=== PATIENT | female | born 1980 | race Caucasian/White ===

== ENCOUNTER 2017-02-24 05:42 | Inpatient (IN) | payer OTHER ==
--- NOTE | 2017-02-24 06:09 | HP ---
HISTORY OF PRESENT ILLNESS: Ms. Roberson comes into our office with significant low back and mid back pain. She has rather significant T11-T12 disk disease and MRI was ordered a thoracic spine. Those i mages have been reviewed by Dr. Canales. The symptoms are now worsening in the right leg burning i s no left leg, electric sensations that do not follow classical dermatomes. There is some change in sensation on the right greater than the left. There is also some left flank pain in the chest that w raps around the lower sternum on the left, but there is none on the right. PAST MEDICAL HISTORY: Low back pain, sciatica, hypertension, edema. ALLERGIES: ZORVOLEX, SULFA, PENICILLIN. REVIEW OF SYSTEMS: Ten-point review of system is complete is otherwise negative unless stated in the above HPI. IMAGING: For disks of the imaging studies at [facility]. PAST SURGICAL HISTORY: in 2003 and 2005, tubal ligation in 2005, appendectomy in 1999. HOSPITALIZATIONS: Surgeries only. FAMILY HISTORY: Father is alive, diagnosed with hypertension and heart disease. Mother is alive and siblings are alive. SOCIAL HISTORY: Patient is a current smoker, 1 pack per day for 17 years. She is a stay at home mom . She is and has 2 children. MEDICATIONS: Taking 1. Gabapentin 300 mg capsule 1 capsule orally 3 times a day. 2. Lisinopril 20 mg tablet 1 tablet orally once a day. 3. Baclofen 10 mg tablet 1 tablet with food or milk orally 3 times a day. 4. Spironolactone 25 mg tablet 1 tablet orally twice a day. PHYSICAL EXAMINATION: HEENT: Normocephalic, atraumatic. Hearing intact. Moist mucous membranes. Trachea is midline. Ey es: Pupils are equal and reactive to light. Extraocular muscles are intact. Sclerae is white, thanh cteric. PSYCHIATRIC: Normal mood and affect. CARDIOVASCULAR/CARDIOPULMONARY: No cyanosis or clubbing noted. Intact pedal pulses bilaterally. RESPIRATIONS: Patient has bilateral symmetric chest rise, appears to be no shortness of breath. NEUROLOGIC: Gait and station are normal. Motor exam: There is normal strength in the deltoids, bic eps, triceps, and wrist extensors. Flexion bilaterally is weak with poor effort. No significant leg weakness. Sensory exam: There is no dermatomal sensory loss in C5, C6, C7, C8 or T1. She is havin g some pain in T6 and T11 dermatomes. No sensory level. Reflex exam is brisk knee jerks left greate r than the right. Imaging shows MRI left T6-7 and left T11-12 herniated nucleus pulposus with canal narrowing and stretch of the left nerve roots there. Free look at cervical spine on this most recent thoracic spine shows significant neural entrapment at all. Prior lumbar MRI, no nerve compression. ASSESSMENT: 1. 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 2. Morbid obesity due to excess calories. 3. Chronic pain. PLAN: Nonsurgical therapy has not worked well. Dr. Canales spent a significant amount of time chris bety about obesity, tobacco use, and risks for surgery. Informed consent, we discussed the indicatio ns, risks, benefits, alternatives, and expected results from surgery. Risks discussed included, but were not limited to bleeding, infection, CSF leak, nerve damage, weakness, incontinence, spinal cord injury, arachnoiditis, paralysis, ventilator dependence, wheelchair dependence, loss of vision, and c ardiopulmonary complications of anesthesia or . Long-term complications discussed included, but were not limited to spinal instability and future surgery. She understands the risk and is willing to proceed with the surgery. Costotransversectomy - lateral extracavitary for microsurgical disk rem oval, anticipate some calcifications.
[2017-02-24] MEDS ORDERED: Famotidine/PF 20 mg/2ml Vial ONE (06:17)
[2017-02-24] MEDS ORDERED: Sodium Chloride 0.9% 30 ML ONE (06:17)
[2017-02-24] MEDS ORDERED: Thrombin 5000 UNITS/5 ML VIAL ONE ×2 (06:17→09:01)
[2017-02-24] MEDS ORDERED: Bupivacaine/Epinephrine 0.25% 30 ML VIAL ONE (06:17)
[2017-02-24] MEDS ORDERED: Midazolam HCl 2 mg/2 ml Vial ONE (06:30)
[2017-02-24] MEDS ORDERED: Phenylephrine 10 MG/NS 250 ML 250 ML ONE (06:36)
[2017-02-24] MEDS ORDERED: Albumin 5% 500 ML ONE (06:36)
[2017-02-24 06:39] LABS: #Basophils 0.1 thou/uL (0.0-0.2); #Eosinphils 0.3 thou/uL (0.0-0.7); #Lymphocytes 1.4 thou/uL (1.20-3.40); #Monocytes 0.9 thou/uL (0.11-0.59); #Neutrophils 10.7 thou/uL (1.40-6.50); %Basophils 0.5 % (0.0-1.0); %Eosinophils 1.9 % (0.0-10.0); %Lymphocytes 10.6 % (21.0-51.0); %Monocytes 6.9 % (0.0-10.0); Hematocrit 44.1 % (36.0-47.0); Mean Platelet Volume 8.3 fL (7.4-10.4); Red Blood Cell (RBC) Count 4.72 mill/uL (4.20-5.40); White Blood Cell (WBC) Count 13.3 thou/uL (4.8-10.8)
[2017-02-24 06:45] LABS: PTT 27.6 SEC (22.9-36.1); Prothrombin Time 12.2 SEC (12.0-14.7)
[2017-02-24] MEDS ORDERED: Fentanyl 250 MCG/5 ML VIAL ONE (06:47)
[2017-02-24] MEDS ORDERED: Levofloxacin 500 mg/D5W 100 ml Premix Bag ONE (06:47)
[2017-02-24] MEDS ORDERED: Clindamycin/D5W 900 mg/50 ml Premix Bag ONE (06:47)
[2017-02-24] MEDS ORDERED: Midazolam HCl 5 mg/5 ml Vial ONE (06:59)
[2017-02-24] MEDS ORDERED: Promethazine HCl 25 MG/ML VIAL SLOW IVP PRN (08:19)
[2017-02-24] MEDS ORDERED: Ondansetron HCl/PF 4 MG/2 ML Vial IVP PRN ×2 (08:19→13:07)
[2017-02-24] MEDS ORDERED: Promethazine HCl 25 MG/ML VIAL IM PRN (08:19)
[2017-02-24] MEDS ORDERED: Meperidine HCl/PF 25 MG/ML VIAL SLOW IVP PRN (08:19)
[2017-02-24] MEDS ORDERED: Morphine Sulfate 2 MG/ML SYRINGE SLOW IVP PRN (08:19)
[2017-02-24] MEDS ORDERED: HYDROmorphone 2 MG/ML VIAL SLOW IVP PRN (08:19)
[2017-02-24] MEDS ORDERED: Albuterol Sulfate HFA (OR ONLY) ONE (09:01)
[2017-02-24] MEDS ORDERED: Vecuronium 10 MG VIAL ONE (09:01)
[2017-02-24] MEDS ORDERED: Fentanyl 100 MCG/2 ML VIAL ONE ×2 (09:47→15:37)
[2017-02-24] MEDS ORDERED: hydrALAZINE 20 MG/ML VIAL ONE (12:43)
[2017-02-24] MEDS ORDERED: Acetaminophen/Codeine 30-300mg Tablet PO PRN ×2 (13:07→13:10)
[2017-02-24] MEDS ORDERED: Sodium Chloride For Inhalation 0.9% 3 ML NEB ONE (13:33)
[2017-02-24] MEDS ORDERED: Morphine 2 mg/2ml in 0.9% NaCl PF SYRINGE IVP PRN (14:00)
--- NOTE | 2017-02-24 14:28 | OP ---
DATE OF OPERATION: 02/24/2017 SURGEON: Zaida Canales M.D. IRON SETTER: Santos Lord PA-C. PREOPERATIVE INDICATION: Treat pain and prevent neurological deterioration. PREOPERATIVE DIAGNOSES: Thoracic intervertebral disk herniations at T6-T7 and T11-T12 with T6 and T1 2 radiculopathies and spinal cord compression. POSTOPERATIVE DIAGNOSES: Thoracic intervertebral disk herniations at T6-T7 and T11-T12 with T6 and T 12 radiculopathies and spinal cord compression. OPERATIVE PROCEDURE: Left-sided costotransverse approach with microdiskectomy at T6-T7 and T11-12, o perating microscope. PREOPERATIVE MEDICATION: Ancef 2 grams IV. DRAIN NUMBER: Zero. DRAIN TYPE: None. OPERATIVE DICTATION: The patient was brought to the operating room. General endotracheal anesthesia was induced. The patient was carefully positioned prone on the Bakari frame. Her body habitus mad e positioning and x-rays difficult. We took multiple fluoro radiographs to confirm and reconfirm the T11-T12 and T6-T7 interspaces in the thoracic spine. The thoracic skin was sterilely prepped and dr aped. We opened with a 10-blade knife and controlled bleeding with bipolar and monopolar cautery. W e dissected through copious amounts of subcutaneous fat to the thoracodorsal fascia. We first opened the fascia at T11-T12. We incised this on the left side of the midline and carried our dissection t o the transverse processes. A lateral fluoro radiograph was used to confirm the level upon which we were operating. We visualized the sacrum. We carefully moved our fluoro up until we confirmed and r econfirmed our localization at T11-T12. The malrotation of the retractor was significant. We contin ued our dissection over the transverse processes of T11 and T12 and placed a retractor just lateral t o the transverse process on the left where the blade of the retractor was in the fascia on the right. Using a high-speed drill, we drilled away the transverse process of T12 in its entirety as well as portion of the rib head. We then thinned the lateral portion of the lamina of T11 and using a Kerris on rongeur, we fashioned partial hemilaminectomy there. We removed yellow ligament visualized at dur a. The superior portion of the T11-T12 facet joint was removed until it was flushed with the pedicle . We drilled away some portion of the pedicle to ensure we were below the intervertebral disk. The operative microscope was brought into the field and under microscopic magnification using microsurgic al techniques, we carefully identified the T11 nerve root. We decompressed this by removing the infe rior portion of the transverse process at T11, ventral to the nerve root and in the foramen. We coul d access the disk space. There was disk protrusion at the lateral edge of the dura that was tenting posteriorly. With our microscope tilted through our costotransverse removal, we could see the interf radha between disk and dura. We gently reduced disk away from the dura. We incised the disk space lat erally to the protrusion and removed disk fragments from under the protrusion, we then used curettes to reduce the disk back into the interspace and sweep it away from the dura laterally. Multiple disk fragments were removed. At completion of our microdiskectomy, there was no further tenting of the d ura. The T11 nerve root was widely decompressed. We irrigated with bacitracin irrigation and contro lled bleeding with gentle bipolar cautery and waxed the bone edges. This was a difficult and the lar gest portion of the procedure due to the patient's body habitus. We then moved our attention to the T6-T7 interspace. We incised the fascia to the left of midline. We placed self-retaining retractors as we swept the paraspinal muscles off the spinous process and lamina of T6 and T7, also the transve rse processes. A lateral fluoro radiograph confirmed the level upon which we were operating. We too k advantage of the T11-T12 interspace by putting a marker there then counted up from that to T6-T7. Under the operating microscope, we thinned the lateral portion of the T6 lamina, we removed the T7 tr ansverse process, we drilled away rib head, and we drilled away a portion of the T7 pedicle. We wu blanka yellow ligament and identified the dura. The dura was again tented posteriorly from a disk protr usion in the lateral portion of the spinal canal. We identified the T6 nerve root and made sure this was well decompressed by removing portions of the transverse process of T6 lamina. We then turned o ur attention to decompressing the dura. Once again, we took a angular approach through our defect cr eated by bone drilling to visualize the interface between disk and dura. We incised the disk lateral to the protrusion and then we used curettes to reduce the disk and under the dura and into the openi ng including the disk space and then swept laterally. Multiple fragments of disk were removed. At t he completion of the diskectomy, the dura was no longer stretched. At T6 nerve root was well decompr essed. We irrigated copiously with bacitracin irrigation. We closed both wounds in anatomic layers and applied a sterile dressing. This case was significantly longer and difficult than the average case due to the patient's body habi tus.
[2017-02-24] MEDS ORDERED: Labetalol HCl 100 MG/20 ML VIAL ONE (14:42)
[2017-02-24] MEDS ORDERED: Clindamycin 150 MG CAP PO SCH (18:00)
[2017-02-24] MEDS: Acetaminophen/Codeine 30-300mg Tablet PO PRN (18:25)
[2017-02-24] MEDS: Gabapentin 300 MG CAP PO SCH ×2 (18:25→20:14)
[2017-02-24] MEDS: Baclofen 10 MG TAB PO SCH ×2 (19:33→20:14)
[2017-02-24] MEDS: Clindamycin 150 MG CAP PO SCH (20:14)
[2017-02-24] MEDS: Lisinopril 20 MG TAB PO SCH (20:18)
[2017-02-24] MEDS: Sodium Chloride 0.9% 1,000 ML IV SCH (20:20)
[2017-02-24] MEDS: Morphine 4 MG/ML VIAL SLOW IVP PRN (20:21)
[2017-02-25] MEDS: Cyclobenzaprine 10 MG TAB PO PRN ×2 (00:04→17:17)
[2017-02-25 00:47] VITALS: BMI 43.7
[2017-02-25] MEDS: Sodium Chloride 0.9% 1,000 ML IV SCH ×2 (02:21→16:21)
[2017-02-25] MEDS: Clindamycin 150 MG CAP PO SCH ×5 (05:05→20:48)
[2017-02-25] MEDS: Morphine 4 MG/ML VIAL SLOW IVP PRN ×3 (05:33→18:42)
[2017-02-25] MEDS: Lisinopril 20 MG TAB PO SCH ×2 (08:06→20:48)
[2017-02-25] MEDS: Baclofen 10 MG TAB PO SCH ×3 (08:06→20:47)
[2017-02-25] MEDS: Gabapentin 300 MG CAP PO SCH ×4 (08:06→20:48)
[2017-02-25] MEDS: Acetaminophen/Codeine 30-300mg Tablet PO PRN ×2 (08:09→15:20)
[2017-02-25] MEDS ORDERED: Dexamethasone 4 mg/ml Vial SLOW IVP SCH (09:00)
[2017-02-26] MEDS: Clindamycin 150 MG CAP PO SCH ×2 (04:24→08:35)
[2017-02-26] MEDS: Acetaminophen/Codeine 30-300mg Tablet PO PRN ×2 (04:42→08:36)
[2017-02-26] MEDS: Cyclobenzaprine 10 MG TAB PO PRN (04:42)
[2017-02-26] MEDS: Sodium Chloride 0.9% 1,000 ML IV SCH (05:25)
[2017-02-26 08:20] VITALS: BP 112/58; TEMP 97.9
[2017-02-26] MEDS: Baclofen 10 MG TAB PO SCH (08:35)
[2017-02-26] MEDS: Lisinopril 20 MG TAB PO SCH (08:35)
[2017-02-26] MEDS: Gabapentin 300 MG CAP PO SCH (08:35)
== END 2017-02-26 10:43 | disposition home or self-care (01) | DRG 519 ==
LOC: SURG A 05:42
PROVIDERS: ADMIT Neurological Surgery; ATTEND Neurological Surgery
PROC: 0RB90ZZ Excision of Thoracic Vertebral Disc, Open Approach (ICD-10-PCS; principal; 2017-02-24)
PROC: 8E0WXBF Computer Assisted Procedure of Trunk Region, With Fluoroscopy (ICD-10-PCS; 2017-02-24)
PROC: 01N80ZZ Release Thoracic Nerve, Open Approach (ICD-10-PCS; 2017-02-24)
DX: M51.14 Intervertebral disc disorders with radiculopathy, thoracic region (principal); Z68.41 Body mass index [BMI] 40.0-44.9, adult; G95.20 Unspecified cord compression; E66.01 Morbid (severe) obesity due to excess calories; F17.210 Nicotine dependence, cigarettes, uncomplicated; G89.29 Other chronic pain; Z88.0 Allergy status to penicillin; Z88.2 Allergy status to sulfonamides; Z88.8 Allergy status to other drugs, medicaments and biological substances; Z82.49 Family history of ischemic heart disease and other diseases of the circulatory system
CPT/HCPCS: 36415; 76001; 85025; 85610; 85730; 96374; 96375; A4216; G8978-GP-CK; G8979-GP-CI; J0131; J0360; J1100; J1170; J1956; J2250; J2270; J3010; J3370; J3490; J7620; P9045; S0028